=== PATIENT | male | born 1965 | race Caucasian/White ===

== ENCOUNTER → 2020-07-13 | Outpatient (REF) | payer OTHER ==
[~2020-07-13] MED LIST: ASPI81TA86 PO; ATOR40TA75 PO; DILT12SRCA PO; EFFI10TA4 PO; ENTR1TAB PO; GABA-845 PO; GLYB5TA PO; INSULANT; ISOS120T7 PO; METF-877 PO; MULTCAP PO; NITR0.4S14 SL; OMEP-218 PO; RANE1000 PO; REPA140I2 SC; STEG5TAB PO; TOPR100T PO; VASC1CAP2 PO; VICT18IN SC
[2020-07-13 17:40] LABS: PLATELET COUNT, AUTOMATED 177 10^3/uL (150-450)
[2020-07-13 17:51] LABS: INR 0.95; PROTHROMBIN TIME 12.9 SECONDS (11.8-14.0)
[2020-07-13 17:52] LABS: PARTIAL THROMBOPLASTIN TIME 27.6 SECONDS (25.0-38.4)
== END ==
LOC: M LAB REF 17:35
PROVIDERS: ATTEND Internal Medicine Pulmonary Disease
DX: Z01.812 Encounter for preprocedural laboratory examination (principal)

== ENCOUNTER 2020-08-16 07:03 | Day surgery (SDC) | payer OTHER ==
[~2020-08-16] VITALS: Ht 182.9 cm; Wt 112.9 kg
[~2020-08-16 07:03] MED LIST changes: +ALBUTEROL SULFATE 2.5 MG/0.5 ML INH NEB SOLN INH ONE; -INSULANT; +LIDOCAINE 4% INJ 5ML AMP INH ONE; +LR 1,000 ML IV ONE
[2020-08-16] MEDS ORDERED: INSULANT (07:21)
[2020-08-16] MEDS ORDERED: LIDOCAINE 2% 100MG/5ML SDV (FOR ANES.) As Ordered ONE (08:07)
[2020-08-16] MEDS ORDERED: ROCURONIUM BROMIDE 50 MG/5 ML VIAL As Ordered ONE (08:07)
[2020-08-16] MEDS ORDERED: propofoL 200 MG/20 ML VIAL As Ordered ONE ×2 (08:07→11:23)
[2020-08-16] MEDS ORDERED: fentaNYL 100 MCG/2 ML INJECTION (J3010) As Ordered ONE (08:07)
[2020-08-16] MEDS ORDERED: ONDANSETRON 4MG/2ML VIAL As Ordered ONE (08:07)
[2020-08-16] MEDS ORDERED: dexameTHASONE 4 MG/ML 1ML VIAL (J1100 PER 1MG) As Ordered ONE (08:07)
[2020-08-16] MEDS ORDERED: MIDAZOLAM INJ 2MG/2ML VIAL (J2250 PER 1MG) As Ordered ONE (08:09)
[2020-08-16] MEDS ORDERED: THROMBIN SOLN 5,000 UNITS VIAL As Ordered ONE (08:15)
[2020-08-16] MEDS ORDERED: EPINEPHrine 1MG/10ML SYRINGE 1.5IN As Ordered ONE (08:15)
[2020-08-16] MEDS ORDERED: LIDOCAINE 1% SDV 30ML VIAL As Ordered ONE (08:15)
[2020-08-16] MEDS ORDERED: CETACAINE SPRAY 5GM As Ordered ONE (08:17)
[2020-08-16] MEDS ORDERED: ETOMIDATE INJ 20MG/10ML VIAL As Ordered ONE (08:41)
[2020-08-16] MEDS ORDERED: PHENYLephrine HCL 500 MCG/5 ML (100MCG/ML) SYRINGE (J2370) As Ordered ONE (09:01)
[2020-08-16] MEDS ORDERED: ePHEDrine SULFATE 25 MG/5 ML(5MG/ML) SYRINGE As Ordered ONE (09:06)
[2020-08-16] MEDS ORDERED: SUGAMMADEX SODIUM 500 MG/5 ML VIAL (BRIDION) As Ordered ONE (09:59)
[2020-08-16] MEDS ORDERED: ONDANSETRON 4MG/2ML VIAL IV PRN (11:15)
[2020-08-16] MEDS ORDERED: fentaNYL 100 MCG/2 ML INJECTION (J3010) IV PRN (11:15)
[2020-08-16] MEDS ORDERED: LR 1,000 ML IV SCH (11:15)
[2020-08-16 11:27] VITALS: BP 126/72
--- NOTE | 2020-08-22 09:02 | REP ---
CHEST X-RAY: LIMITED STUDY 3-VIEWS HISTORY: Procedural imaging left upper lobe abnormality. FLUROSCOPY TIME: 5 minutes 31 seconds. FINDINGS: A sequence of two fluoroscopically obtained intraprocedural spot radiographs of the chest document bronchoscopic position and fiducial marker placement. MTDD
--- NOTE | 2020-08-22 09:03 | REP ---
PORTABLE CHEST X-RAY: SINGLE VIEW HISTORY: Postop. Bronchoscopy. COMPARISON: No comparison chest imaging. FINDINGS: Upright portably obtained chest film demonstrates two fiducial markers in the left superior perihilar region with some adjacent streaky parenchymal opacity. There is no evidence of pneumothorax or hydrothorax. A right-sided Infusaport catheter is noted. Heart is not enlarged. Lung muniz are otherwise clear. IMPRESSION: Fiducial markers and streaky opacity left superior perihilar region. No complications seen. MTDD
--- NOTE | 2020-08-22 09:14 | RO ---
DATE OF OPERATION: 08/16/2020 Procedure: Robotic bronchoscopy with endobronchial ultrasound PREOPERATIVE DIAGNOSIS: Abnormal chest CT. History of small-cell carcinoma of the lung. POSTOPERATIVE DIAGNOSIS: Abnormal chest CT. History of small-cell carcinoma of the lung. FINDINGS: Smokers airway with banding and pitting. PROCEDURE DONE BY: Dr. Jeffrey Clark. ASSISTANTS: Dr. Crocker and Dr. Montgomery. SPECIMENS OBTAIN: 1. Forceps biopsy left upper lobe. 2. Cytoneedle left upper lobe. 3. Cytobrush left upper lobe 4. BAL left upper lobe ANESTHESIA: General. Please refer to their records for details. ESTIMATED BLOOD LOSS: Less than 5 cc. DRAINS: No drains. COMPLICATIONS: No observed complications. DESCRIPTION OF PROCEDURE: After informed consent was reviewed with the patient in the preoperative area, he was brought back to OR 8 and the patient was intubated with 9.5 endotracheal tube. The case was then handed over to nd. Time-out was performed with two patient identifiers, identifying the correct site, the correct procedure, along with correlating name and date of with the [employer] platform. Cetacaine spray was used to anesthetize the airway. The 1T190 bronchoscope was then inserted into the endotracheal tube. All airways were suctioned. The aura was sharp. Right and left mainstem bronchi had minimal secretions. RB 1 through 10 was without endobronchial lesions, but there was significant banding and pitting. LB 1 through 10 again without significant lesions, but banding and pitting. After all airways reviewed, the bronchoscope was retracted back into the endotracheal tube and removed. The robotic scope was inserted and registration was preformed. Target #1 was easily navigated to in the left upper lobe posterior segment. Transbronchial and endobronchial forceps biopsies were taken. Cytology brush was then obtained. Radial ultrasound was used to confirm adequacy of the sampling. There was eccentric lesion that was present. This was marked on fluoroscopy prior to the biopsies. Cytoneedle FNA was then performed. After adequate sampling, BAL was performed. Fiducial markers were then placed. After all navigation procedures were performed and bronchoscope was removed, the monarch bronchoscope was removed and the 1T190 bronchoscope was replaced. All airways were suctioned. No signs of ongoing bleeding. Hemostasis assured. The case handed back over to anesthesia. The patient is in recovery. Post procedure chest x-ray is pending. [facility]
== END 2020-08-16 11:50 | disposition home or self-care (01) ==
LOC: M SDC 07:03
PROVIDERS: ATTEND Internal Medicine Pulmonary Disease
DX: J98.8 Other specified respiratory disorders (principal); J44.9 Chronic obstructive pulmonary disease, unspecified; E11.40 Type 2 diabetes mellitus with diabetic neuropathy, unspecified; I10 Essential (primary) hypertension; E78.5 Hyperlipidemia, unspecified; Z79.82 Long term (current) use of aspirin; Z79.899 Other long term (current) drug therapy; Z79.84 Long term (current) use of oral hypoglycemic drugs; Z87.891 Personal history of nicotine dependence; K21.9 Gastro-esophageal reflux disease without esophagitis; I25.2 Old myocardial infarction; Z98.61 Coronary angioplasty status; Z85.118 Personal history of other malignant neoplasm of bronchus and lung
CPT/HCPCS: 31623; 31624; 31626; 31627; 31628; 31629; 71045; 76000; 88104; 88108; 88173; 88305; 88313; A4648; J1100; J2250; J2370; J2405; J3010; S2900